=== PATIENT | female | born 1955 | race Caucasian/White ===

== ENCOUNTER → 2023-05-13 08:51 | Outpatient (CLI) | payer MEDICARE, SELFPAY ==
--- NOTE | 2023-05-13 09:00 | XR_ITS ---
FINAL REPORT TECHNIQUE: Bone densitometry calculations of the lumbar spine and left hip were obtained. CLINICAL HISTORY: osteoporosis FINDINGS: Using L1-4, the bone mineral density of the spine is 1.229 g/cm2, corresponding to T-score of 1.7 and a Z score of 3.7. This is within the range of normal. Using the left hip, the bone mineral density of the femoral neck is 1.007 g/cm2, corresponding to a T-score of 0.5 and a Z-score of 2.0. This is within the range of normal. NOTE: T-score: Standard deviation compared with peak bone mass of young adult mean. *Following the recommendations of the International Society of Bone densitometry, classification of hip BMD is based on the lower of two T-scores; total hip or femoral neck. IMPRESSION: 1. Bone mineral density of the lumbar spine within the range of normal. 2. Bone mineral density of the left femoral neck within the range of normal. FRAX was not reported because all of the T-scores are at or above -1.0. Reviewed, Interpreted and Dictated by Trudy Shoemaker MD Transcribed by Bruna Adan Authenticated and [facility]
== END ==
PROVIDERS: PCP Family Medicine; Visit Provider Nurse Practitioner Family
DX: Z13.820 Encounter for screening for osteoporosis; Z78.0 Asymptomatic menopausal state
CPT/HCPCS: 77080